=== PATIENT | male | born 1990 | race Hispanic/Latino ===

== ENCOUNTER 2018-03-12 09:06 | Emergency (ER) | payer OTHER, SELFPAY ==
--- NOTE | 2018-03-12 09:27 | ER ---
Nurse's Notes [facility] Name: Emil Reich Age: 27 yrs Sex: Male : 1990 Arrival Date: 03/12/2018 Time: 09:09 Bed 17 Private MD: None, None Diagnosis: Insect bite (nonvenomous) of front wall of thorax;Cellulitis and acute lymphangitis of trunk;Cutaneous abscess of chest wall Presentation: 03/12 09:22 Presenting complaint: Patient states: " I think I got bit by a mosquito. Now it's ph swollen and I think it's infected." Small abcess noted to R axilla, pt denies fever, N/V/D. Transition of care: patient was not received from another setting of care. Onset of symptoms was March 12, 2018. Risk Assessment: Do you want to hurt yourself or someone else? Patient reports no desire to harm self or others. Initial Sepsis Screen: Does the patient meet any 2 criteria? No. Patient's initial sepsis screen is negative. Does the patient have a suspected source of infection? No. Patient's initial sepsis screen is negative. Care prior to arrival: None. 09:22 Method Of Arrival: Ambulatory 09:22 Acuity: TEX 4 ph Triage Assessment: 09:15 Bite description: bite sustained to right lateral anterior chest by insect. rb1 09:15 Bite description: animal information: vaccination(s) is not applicable. rb1 Historical: - Allergies: 09:25 No Known Allergies; ph - Home Meds: 09:25 None [Active]; ph - PMHx: 09:25 None; ph - PSHx: 09:25 None; ph - Immunization history:: Adult Immunizations up to date, Last tetanus immunization: up to date. - Social history:: Smoking status: Patient/guardian denies using tobacco. - Family history:: not pertinent. - Ebola Screening: : No symptoms or risks identified at this time. Screenin:15 Abuse screen: Denies threats or abuse. Nutritional screening: No deficits noted. rb1 Tuberculosis screening: No symptoms or risk factors identified. Fall Risk None identified. Assessment: 09:15 General: Appears in no apparent distress. comfortable, slender, Behavior is calm, rb1 cooperative. General: Denies fever. Pain: Complains of pain in right lateral anterior chest Pain currently is 10 out of 10 on a pain scale. Pain began . Neuro: Level of Consciousness is awake, alert, obeys commands, Oriented to person, place, time, situation. Cardiovascular: Capillary refill < 3 seconds is brisk in bilateral fingers. Respiratory: Airway is patent Respiratory effort is even, unlabored, Respiratory pattern is regular, symmetrical. GI: No signs and/or symptoms were reported involving the gastrointestinal system. : No signs and/or symptoms were reported regarding the genitourinary system. Derm: Skin scab noted at site Skin is red, around the insect bite. Musculoskeletal: Range of motion: intact in all extremities. 09:28 Reassessment: Discharge pending due to provider's need to perform a procedure. rb1 10:06 Reassessment: Dr. Hill is at bedside performing the I \\T\\ D. rb1 10:15 Reassessment: Patient appears in no apparent distress at this time. Patient and/or rb1 family updated on plan of care and expected duration. Pain level reassessed. Patient is alert, oriented x 3, equal unlabored respirations, skin warm/dry/pink. Vital Signs: 09:24 BP 124 / 84; Pulse 83; Resp 18; Temp 98.0; Pulse Ox 98% on R/A; Weight 58.97 kg; Height ph 5 ft. 7 in. (170.18 cm); Pain 10/10; 10:20 BP 121 / 78; Pulse 79; Resp 16; Pulse Ox 100% ; rb1 09:24 Body Mass Index 20.36 (58.97 kg, 170.18 cm) ph ED Course: 09:09 Patient arrived in ED. sb2 09:10 None, None is Private Physician. sb2 09:14 Emil Hill MD is Attending Physician. yanick 09:15 Patient has correct armband on for positive identification. Bed in low position. Call rb1 light in reach. Side rails up X 1. Pulse ox on. NIBP on. 09:17 Heidi Ashley, JENNY is Primary Nurse. rb1 09:24 Triage completed. ph 09:26 Sai Fowler MD is Referral Physician. yanick 09:31 Arm band placed on. ph 10:35 Assist provider with I \\T\\ D: of an abscess on Set up I\\T\\D tray. Performed by Emil rb 1 Sergio WATERS Patient tolerated well. Patient did not have IV access during this emergency room visit. Administered Medications: : Drug: Doxycycline 200 mg Route: PO; rb1 10:15 Follow up: Response: No adverse reaction rb1 :46 Drug: Bactrim (160 mg-800 mg (DS) 1 tablet Route: PO; rb1 10:15 Follow up: Response: No adverse reaction rb1 10:05 Drug: Lidocaine-Epinephrine -1%: (1:100,000) 15 ml Volume: 20 ml; Route: Infiltration; rb1 10:05 Follow up: Had to pull the 50 ml bottle because the 20 ml bottle wasn't available. rb1 Intake: Outcome: : Discharge ordered by . [facility] 10:35 Patient left the ED. [facility] 10:35 Discharged to home ambulatory, with family. [facility] 10:35 Condition: stable 10:35 Discharge instructions given to patient, Instructed on discharge instructions, follow up and referral plans. medication usage, Demonstrated understanding of instructions, follow-up care, medications, Prescriptions given X 4. Addendum: 03/16/2018 07:44 Addendum: Culture Results: Positive wound culture. No further action required. Bacteria s s sensitive to prescribed antibiotic. Signatures: Emil Hill MD MD cha Smirch, Shelby RN RN ss Carrie Driver RN RN Heidi Collins, RN RN rb1 Hina Cross2 Corrections: (The following items were deleted from the chart) 03/12 10:37 09:32 Bite description: by [facility] rb1
--- NOTE | 2018-03-12 09:27 | EDPHYS ---
Physician Documentation [facility] Name: Emil Reich Age: 27 yrs Sex: Male : 1990 Arrival Date: 03/12/2018 Time: 09:09 Bed 17 Private MD: None, None ED Physician Sergio Emil HPI: 03/12 09:24 This 27 yrs old Male presents to ER via Unassigned with complaints of Insect yanick Bite. 09:24 The patient presents with an abscess of the right lateral anterior chest and right yanick lateral posterior chest. Description: The affected area is moderate sized, localized, erythematous. Onset: The symptoms/episode began/occurred 3 day(s) ago. Possible cause(s): insect sting. Associated signs and symptoms: The patient has no apparent associated signs or symptoms. Severity of symptoms: At their worst the symptoms were mild, moderate, in the emergency department the symptoms are unchanged. The patient has not experienced similar symptoms in the past. Historical: - Allergies: :25 No Known Allergies; ph - Home Meds: :25 None [Active]; ph - PMHx: : None; ph - PSHx: :25 None; ph - Immunization history:: Adult Immunizations up to date, Last tetanus immunization: up to date. - Social history:: Smoking status: Patient/guardian denies using tobacco. - Family history:: not pertinent. - Ebola Screening: : No symptoms or risks identified at this time. ROS: 09:24 Constitutional: Negative for fever, chills, and weight loss, Eyes: Negative for injury, yanick pain, redness, and discharge, ENT: Negative for injury, pain, and discharge, Neck: Negative for injury, pain, and swelling, Cardiovascular: Negative for chest pain, palpitations, and edema, Respiratory: Negative for shortness of breath, cough, wheezing, and pleuritic chest pain, Abdomen/GI: Negative for abdominal pain, nausea, vomiting, diarrhea, and constipation, Back: Negative for injury and pain, : Negative for injury, bleeding, discharge, and swelling, MS/Extremity: Negative for injury and deformity, Neuro: Negative for headache, weakness, numbness, tingling, and seizure, Psych: Negative for depression, anxiety, suicide ideation, homicidal ideation, and hallucinations, Allergy/Immunology: Negative for hives, rash, and allergies, Endocrine: Negative for neck swelling, polydipsia, polyuria, polyphagia, and marked weight changes, Hematologic/Lymphatic: Negative for swollen nodes, abnormal bleeding, and unusual bruising. 09:24 Skin: Positive for cellulitis, swelling, of the chest. Exam: :24 Constitutional: This is a well developed, well nourished patient who is awake, alert, yanick and in no acute distress. Head/Face: Normocephalic, atraumatic. Eyes: Pupils equal round and reactive to light, extra-ocular motions intact. Lids and lashes normal. Conjunctiva and sclera are non-icteric and not injected. Cornea within normal limits. Periorbital areas with no swelling, redness, or edema. ENT: Nares patent. No nasal discharge, no septal abnormalities noted. Tympanic membranes are normal and external auditory canals are clear. Oropharynx with no redness, swelling, or masses, exudates, or evidence of obstruction, uvula midline. Mucous membranes moist. Neck: Trachea midline, no thyromegaly or masses palpated, and no cervical lymphadenopathy. Supple, full range of motion without nuchal rigidity, or vertebral point tenderness. No Meningismus. Chest/axilla: Normal chest wall appearance and motion. Nontender with no deformity. No lesions are appreciated. Cardiovascular: Regular rate and rhythm with a normal S1 and S2. No gallops, murmurs, or rubs. Normal PMI, no JVD. No pulse deficits. Respiratory: Lungs have equal breath sounds bilaterally, clear to auscultation and percussion. No rales, rhonchi or wheezes noted. No increased work of breathing, no retractions or nasal flaring. Abdomen/GI: Soft, non-tender, with normal bowel sounds. No distension or tympany. No guarding or rebound. No evidence of tenderness throughout. Back: No spinal tenderness. No costovertebral tenderness. Full range of motion. Male : Normal genitalia with no discharge or lesions. MS/ Extremity: Pulses equal, no cyanosis. Neurovascular intact. Full, normal range of motion. Neuro: Awake and alert, GCS 15, oriented to person, place, time, and situation. Cranial nerves II-XII grossly intact. Motor strength 5/5 in all extremities. Sensory grossly intact. Cerebellar exam normal. Normal gait. Psych: Awake, alert, with orientation to person, place and time. Behavior, mood, and affect are within normal limits. 09:24 Skin: cellulitis, that is minimal, that is mild, induration, is not appreciated, injury, bite(s), deep. Vital Signs: 09:24 BP 124 / 84; Pulse 83; Resp 18; Temp 98.0; Pulse Ox 98% on R/A; Weight 58.97 kg; Height ph 5 ft. 7 in. (170.18 cm); Pain 10/10; 10:20 BP 121 / 78; Pulse 79; Resp 16; Pulse Ox 100% ; rb1 09:24 Body Mass Index 20.36 (58.97 kg, 170.18 cm) ph Procedures: 09:24 I \T\ D: Incision and drainage was performed for an abscess of the right Prepped with [facility] Betadine, Anesthetized with 15 ml's 1% Lidocaine w/ Epi. Incised with #15 blade. Drained small amount Packed with iodoform gauze, Dressing: non-Adherent dressing, the patient tolerated the procedure well. MDM: 09:14 Patient medically screened. [facility] 09:24 Data reviewed: vital signs, nurses notes. [facility] 03/12 09:23 Order name: Wound Culture [facility] 03/12 09:23 Order name: Dressing - Wound; Complete Time: 10:37 [facility] 03/12 09:23 Order name: Gloves, Sterile; Complete Time: 09:40 [facility] 03/12 09:23 Order name: Setup Suture Tray; Complete Time: 09:40 [facility] Administered Medications: 09:46 Drug: Doxycycline 200 mg Route: PO; rb1 10:15 Follow up: Response: No adverse reaction [facility] 09:46 Drug: Bactrim (160 mg-800 mg (DS) 1 tablet Route: PO; rb1 10:15 Follow up: Response: No adverse reaction rb1 10:05 Drug: Lidocaine-Epinephrine -1%: (1:100,000) 15 ml Volume: 20 ml; Route: Infiltration; rb1 10:05 Follow up: Had to pull the 50 ml bottle because the 20 ml bottle wasn't available. rb1 Disposition: 03/12/18 09:27 Discharged to Home. Impression: Insect bite (nonvenomous) of front wall of thorax, Cellulitis and acute lymphangitis of trunk, Cutaneous abscess of chest wall. - Condition is Stable. - Discharge Instructions: Skin Abscess, Cellulitis, Adult, Incision and Drainage, Skin Abscess, [id number], Cellulitis, Adult, [id number]. - Prescriptions for Bactroban 2 % Topical Ointment - Apply to affected area 1 application by TOPICAL route every 12 hours; 30 gram. Tylenol- Codeine #3 300-30 mg Oral Tablet - take 2 tablet by ORAL route every 6 hours As needed; 30 tablet. Doxycycline Hyclate 100 mg Oral Tablet - take 1 tablet by ORAL route every 12 hours; 20 tablet. Bactrim DS 800- 160 mg Oral Tablet - take 1 tablet by ORAL route every 12 hours for 10 days; 20 tablet. - Medication Reconciliation Form, Thank You Letter, Antibiotic Education, Prescription Opioid Use, Work release form form. - Follow up: Sai Fowler MD; When: 2 - 3 days; Reason: Recheck today's complaints, Continuance of care, Re-evaluation by your physician. - Problem is new. - Symptoms have improved. Signatures: Dispatcher [employer] EDMS Emil Hill MD MD cha Hall, Patricia, RN RN Heidi Ashley, RN RN rb1 Corrections: (The following items were deleted from the chart) 10:35 09:27 03/12/2018 09:27 Discharged to Home. Impression: Insect bite (nonvenomous) of rb1 front wall of thorax; Cellulitis and acute lymphangitis of trunk; Cutaneous abscess of chest wall. Condition is Stable. Forms are Medication Reconciliation Form, Thank You Letter, Antibiotic Education, Prescription Opioid Use. Follow up: Sai Fowler; When: 2 - 3 days; Reason: Recheck today's complaints, Continuance of care, Re-evaluation by your physician. Problem is new. Symptoms have improved. yanick
[2018-03-12] MEDS ORDERED: DOXYCYCLINE 100 MG CAP PO ONE (09:45)
[2018-03-12] MEDS ORDERED: SMZ./TMP. 800/160 MG TABLET ONE (09:45)
[2018-03-12] MEDS ORDERED: LIDOCAINE 1% W/EPI 1:100,000 MDV 50 ML VIAL ONE (09:46)
== END 2018-03-12 10:35 | disposition home or self-care (01) ==
LOC: ER 09:06
PROC: 0H95XZZ Drainage of Chest Skin, External Approach (ICD-10-PCS; principal; 2018-03-12)
DX: L02.213 Cutaneous abscess of chest wall (principal); S20.361A Insect bite (nonvenomous) of right front wall of thorax, initial encounter; L03.319 Cellulitis of trunk, unspecified
CPT/HCPCS: 87070; 87077; 87186; 87205; 99284